=== PATIENT | male | born 1980 | race Caucasian/White ===

== ENCOUNTER 2017-12-07 12:02 | Emergency (ER) | payer OTHER ==
--- NOTE | 2017-12-07 13:02 | UC ---
Abdominal Pain Male HPI - HPI Summary HPI Summary: Pt presents with epigastric pain. He tells me that this morning at work he ate a cinnamon roll and chocolate chip cookie. About 20 minutes later he had sharp epigastric pain and vomited within minutes of the pain starting - this did not relieve his pain. He boss took him to a local drug store and they bought tums, of which he took and had no relief. He soon thereafter vomited again and became "sweaty". He then came to our urgent care. Per pt - as he was doing our check in paperwork, he felt 100% better and had no pain. He is currently being treated for sinusitis with amoxicillin, but has been on this for "7 or 8 days now" and has tolerated this in the past without issue. At the time of this interview he denies fever, chills, sore throat, SOB, PERERA, chest pain, abdominal pain, n/v/d/c, body aches, headache, or dizziness. He is seated comfortably drinking gatorade. - History of Current Complaint Chief Complaint: UCAbdominalPain Stated Complaint: ABD PAIN Time Seen by Provider: 12/07/17 12:16 Hx Obtained From: Patient Onset/Duration: Sudden Onset Severity Initially: Moderate Severity Currently: Moderate Pain Intensity: 7 Pain Scale Used: 0-10 Numeric Location: Epigastric Radiates: No Character: Sharp - Allergies/Home Medications Allergies/Adverse Reactions: Allergies Allergy/AdvReac Type Severity Reaction Status Date / Time No Known Allergies Allergy Verified 12/07/17 12:13 Home Medications: Home Medications Amoxicillin PO (*) [Amoxicillin 500 MG CAP*] 1 tab PO BID 12/07/17 [History Confirmed 12/07/17] Benzonatate CAP* [Tessalon 100 MG CAP*] 1 tab PO BID PRN 12/07/17 [History Confirmed 12/07/17] PMH/Surg Hx/FS Hx/Imm Hx - Surgical History Surgical History: None Surgery Procedure, Year, and Place: Appedectomy - Social History Occupation: Employed Full-time Lives: With Family Alcohol Use: Daily Substance Use Type: None Smoking Status (MU): Heavy Every Day Tobacco Smoker Amount Used/How Often: 1ppd Household Exposure Type: Cigarettes Cessation Counseling: Counseled 3+Min - 10 Min - Immunization History Most Recent Influenza Vaccination: NOT UTD Review of Systems Constitutional: Negative Skin: Negative Eyes: Negative ENT: Negative Respiratory: Negative Cardiovascular: Negative Gastrointestinal: Vomiting - Earlier today, Other - Epigastric pain earlier today Neurovascular: Negative Musculoskeletal: Negative Psychological: Negative All Other Systems Reviewed And Are Negative: Yes Physical Exam Triage Information Reviewed: Yes Appearance: Well-Appearing, No Pain Distress, Obese Vital Signs: Initial Vital Signs Temp 96.6 F 12/07/17 12:09 Pulse 64 12/07/17 12:09 Resp 18 12/07/17 12:09 BP 92/58 12/07/17 12:09 Pulse Ox 98 12/07/17 12:09 Vital Signs Reviewed: Yes Eyes: Positive: Conjunctiva Clear, Other: - EOMI. PERRLA. Negative: Conjunctiva Inflamed, Discharge ENT: Positive: Hearing grossly normal, Pharynx normal, TMs normal, Uvula midline. Negative: Pharyngeal erythema, Nasal congestion, Nasal drainage, TM bulging, TM dull, TM red, Tonsillar swelling, Tonsillar exudate, Hoarse voice, Sinus tenderness Neck: Positive: Supple, Nontender, No Lymphadenopathy, Other: - No JVD or carotid bruit Respiratory: Positive: Chest non-tender, Lungs clear, Normal breath sounds, No respiratory distress, No accessory muscle use Cardiovascular: Positive: RRR, No Murmur, Pulses Normal Abdomen Description: Positive: Nontender, No Organomegaly, Soft. Negative: Bruit, CVA Tenderness (R), CVA Tenderness (L), Distended, Guarding, Hepatomegaly , McBurney's Point Tenderness, Pulsatile Mass Bowel Sounds: Positive: Present Neurological: Positive: Alert, Other: - CN II-XII grossly intact. No focal deficits Psychological: Positive: Age Appropriate Behavior Skin: Positive: Other - No ecchymosis or LE edema.. Negative: rashes, significant lesion(s) Diagnostics - EKG Cardiac Rate: NL Cardiac Rhythm: Sinus: Normal ST Segment: Normal Abd Pain Male Course/Dx - Course Course Of Treatment: At the time of my exam, he is lying comfortably on the exam table drinking gatorade and asymptomatic. His repeat BP was 116/66. His EKG revealed sinus rhythm with a rate of [address] changes (as read by Dr. Espinoza). I presented the patient to Dr. Espinoza and we discussed his care. He does have a family hx of cardiac disease and hyperlipidemia. He currently smokes and is morbidly obese, but denies HTN or HLD. I had a discussion with the patient that he could be having unstable angina, aortic dissection, transient arrhythmias, or GI related issues such as a viral illness, ulcer, or gallbladder dysfunction. I recommended that he be seen in the ED for a further, more comprehensive, workup. He declined and wishes to monitor his symptoms. I advised him that if any of his symptoms return, he should call 911 or go to the ED immediately. - Differential Dx/Clinical Impression Provider Diagnoses: Epigastric pain. Vomiting Discharge - Discharge Plan Condition: Stable Disposition: HOME Patient Education Materials: Abdominal Pain (ED) Referrals: Eriberto Chaves MD [Primary Care Provider] - Additional Instructions: If you develop a fever, shortness of breath, chest pain, new or worsening symptoms - please call your PCP or go to the ED. 1) If your symptoms return or if you develop chest pain, SOB, sweating, or weakness - please call 911 or go to the ED.
== END 2017-12-07 13:35 | disposition home or self-care (01) ==
LOC: UCEAST 12:02
DX: R10.13 Epigastric pain (principal); R11.10 Vomiting, unspecified; R07.89 Other chest pain; E66.9 Obesity, unspecified; Z90.89 Acquired absence of other organs; Z71.6 Tobacco abuse counseling; F17.210 Nicotine dependence, cigarettes, uncomplicated
CPT/HCPCS: 87502; 93005; 99201; G0463

== ENCOUNTER 2019-05-25 14:38 | Emergency (ER) | payer OTHER ==
[2019-05-25 14:58] VITALS: BP 116/62
--- NOTE | 2019-05-25 15:27 | UC ---
Minor Trauma HPI - HPI Summary HPI Summary: Pt presents with c/o left, posterior lower rib after coughing "hard" yesterday. Pt also has c/o left forearm blister from contact with either poison aleida, wild parsnip or poison oak. Pt states he knows he has been in contact with all three. - History of Current Complaint Chief Complaint: UCGeneralIllness Stated Complaint: LEFT RIB PAIN/LEFT FOREARM SKIN ISSUE Time Seen by Provider: 05/25/19 14:59 Hx Obtained From: Patient Onset/Duration: Sudden Onset, Lasting Days, Still Present Onset Of Pain: Immediate Severity Initially: Moderate Severity Currently: Moderate Pain Intensity: 7 Mechanism Of Injury: Other - coughing Aggravating Factor(s): Coughing, Movement Alleviating Factor(s): Rest - Risk Factors Penetrating Injury Risk Factors: Negative - Allergies/Home Medications Allergies/Adverse Reactions: Allergies Allergy/AdvReac Type Severity Reaction Status Date / Time No Known Allergies Allergy Verified 05/25/19 14:59 PMH/Surg Hx/FS Hx/Imm Hx Previously Healthy: Yes - Surgical History Surgical History: None Surgery Procedure, Year, and Place: Appedectomy - Family History Known Family History: Positive: Cardiac Disease - Social History Occupation: Employed Full-time Lives: With Family Alcohol Use: Weekly Substance Use Type: None Smoking Status (MU): Heavy Every Day Tobacco Smoker Amount Used/How Often: 1ppd Have You Smoked in the Last Year: Yes Household Exposure Type: Cigarettes - Immunization History Most Recent Influenza Vaccination: NOT UTD Vaccination Up to Date: No Review of Systems All Other Systems Reviewed And Are Negative: Yes Constitutional: Positive: Negative Skin: Positive: Rash, Other - large clear fluid filled blester left medial forearm just proximal of wrist. Eyes: Positive: Negative ENT: Positive: Negative Respiratory: Positive: Negative Cardiovascular: Positive: Negative Gastrointestinal: Positive: Negative Genitourinary: Positive: Negative Motor: Positive: Negative Neurovascular: Positive: Negative Musculoskeletal: Positive: Arthralgia - left side posterior rib Neurological: Positive: Negative Psychological: Positive: Negative Is Patient Immunocompromised?: No Physical Exam Triage Information Reviewed: Yes Appearance: Well-Appearing, Obese Vital Signs: Initial Vital Signs Temp 98.0 F 05/25/19 14:49 Pulse 87 05/25/19 14:49 Resp 16 05/25/19 14:49 BP 116/62 05/25/19 14:49 Pulse Ox 98 06/27/19 14:49 Vital Signs Reviewed: Yes Eye Exam: Normal ENT Exam: Normal Dental Exam: Normal Neck exam: Normal Respiratory Exam: Normal Respiratory: Positive: Normal breath sounds, No respiratory distress Cardiovascular Exam: Normal Musculoskeletal: Positive: Other: - tenderness with palpation left posterior rib ~ 9 or 10 . Neurological Exam: Normal Psychological Exam: Normal Skin: Positive: Rashes - left medial forearm. with intact clear fluid filled blister, one large on medial wrist Diagnostics - Radiology No standard instances Radiology Interpretation Completed By: Radiologist - IMPRESSION: THERE IS NO DISPLACED RIB FRACTURE OR PNEUMOTHORAX. Minor Trauma Course/Dx - Differential Dx/Diagnosis Differential Diagnosis/HQI/PQRI: Contusion(s), Fracture Provider Diagnosis: Rib pain on left side Discharge - Sign-Out/Discharge Documenting (check all that apply): Patient Departure All imaging exams completed and their final reports reviewed: Yes - Discharge Plan Condition: Stable Disposition: HOME Prescriptions: predniSONE TAB* [Deltasone 10 MG TAB*] 30 mg PO DAILY #12 tab Patient Education Materials: Poison Aleida (ED), Rib Contusion (ED) Referrals: Eriberto Chaves MD [Primary Care Provider] - If Needed - Billing Disposition and Condition Condition: STABLE Disposition: Home - Attestation Statements Provider Attestation: Per institutional requirements, I have reviewed the chart, however, I was not consulted specifically or made aware of this patient by the midlevel provider. I did not personally evaluate, interact with , or disposition this patient.
== END 2019-05-25 16:35 | disposition home or self-care (01) ==
LOC: UCCORT 14:38
DX: R07.81 Pleurodynia (principal); X50.0XXA Overexertion from strenuous movement or load, initial encounter; Y93.89 Activity, other specified; Y92.9 Unspecified place or not applicable; F17.210 Nicotine dependence, cigarettes, uncomplicated; R21 Rash and other nonspecific skin eruption
CPT/HCPCS: 99212; G0463